=== PATIENT | female | born 1960 | race Caucasian/White ===

== ENCOUNTER → 2017-12-30 | Outpatient (CLI) | payer BC ==
--- NOTE | 2017-12-30 14:04 | DIAGNOSTIC IMAGING REPORT ---
CT SCAN OF THE ABDOMEN AND PELVIS WITHOUT CONTRAST CLINICAL HISTORY: D64.9 [id number] Personal history of kidney disease, possible adenopathy.. COMPARISON STUDY: No previous studies for comparison. TECHNIQUE: CT scan of the abdomen and pelvis was performed from the lung bases to the proximal femurs. Images are reviewed in the axial, sagittal, and coronal planes. IV contrast was not administered for this examination. A dose lowering technique was utilized adhering to the principles of ALARA. CT DOSE: 1017.46 mGycm FINDINGS: Lower chest: The heart is normal in size and configuration, without pericardial effusion. The lung bases and pleural spaces are clear. Liver: The unenhanced liver is normal in size, contour, and attenuation. There is no intrahepatic biliary ductal dilatation. Gallbladder: Unremarkable. Spleen: Normal in size and attenuation. The spleen measures 96 mm. Pancreas: Unremarkable. Adrenal glands: Unremarkable. Kidneys: The unenhanced kidneys are normal in size without hydronephrosis. There is no contour deforming renal mass lesion. No renal calculi are identified. Bowel: There are no transition zones indicate bowel obstruction. There are no acute inflammatory changes. There is no acute diverticulitis. There are no findings to indicate acute appendicitis. Peritoneum: There is no intraperitoneal free air or abdominal ascites. Vasculature: The abdominal aorta is normal in course and caliber. Adenopathy: None. Pelvic viscera: The bladder, and pelvic viscera are unremarkable. Skeletal structures: No destructive osseous lesions are seen. IMPRESSION: 1. No acute intra-abdominal or pelvic findings 2. Normal splenic size. No evidence of pathologic adenopathy 3. No evidence of bowel obstruction. No evidence of free air 4. No acute inflammatory changes Electronically signed by: Mahamed Desai M.D. 12/30/2017 2:02 PM Dictated Date/Time: 12/30/2017 1:59 PM
== END | disposition home or self-care (01) ==
LOC: C.CTS 13:32
PROVIDERS: ATTEND Family Medicine Adult Medicine
DX: D47.3 Essential (hemorrhagic) thrombocythemia (principal); D64.9 Anemia, unspecified; Z87.442 Personal history of urinary calculi

== ENCOUNTER 2021-05-12 14:00 | Inpatient (IN) ==
[2021-05-12 15:38] LABS: Hematocrit (blood only) 43.4 % (37-47); Hemoglobin 14.7 g/dL (12.0-16.0); Mean Corpuscular Hemoglobin 30.1 pg (25-34); Mean Corpuscular Hgb Conc 33.9 g/dL (32-36); Mean Corpuscular Volume 88.8 fL (80-100); Mean Platelet Volume 8.7 fL (7.4-10.4); Platelet Count 535 K/uL (130-400); RDW Coefficient of Variation 13.1 % (11.5-14.5); RDW Standard Deviation 42.7 fL (36.4-46.3); Red Blood Count 4.89 M/uL (4.2-5.4); White Blood Count 15.85 K/uL (4.8-10.8)
[2021-05-12 15:47] LABS: Appearance Urine Clear (Clear); Bacteria Urine Automated Negative (Negative); Bilirubin Urine Negative (Negative); Blood Urine 3+ (Negative); Color Urine Yellow; Epithelial Cell Urine Auto 20-30 /lpf (0-5); Glucose Urine UA Negative (Negative); Ketones Urine Trace (Negative); Leukocyte Esterase Urine 1+ (Negative); Nitrite Urine Negative (Negative); Protein Urine Trace (Negative); RBC Urine Automated >30 /hpf (0-4); Urobilinogen Urine Negative (Negative)
[2021-05-12 15:55] LABS: BUN Creatinine Ratio 15.5 (10-20); Blood Urea Nitrogen 15 mg/dl (7-18); Calcium 9.8 mg/dl (8.5-10.1); Carbon Dioxide 26 mmol/L (21-32); Chloride 111 mmol/L (98-107); Est GFR (African American) 74.9 ml/min; Est GFR (Non-African American) 64.6 ml/min; Glucose 99 mg/dl (70-99); Potassium 4.3 mmol/L (3.5-5.1); Sodium 140 mmol/L (136-145)
[2021-05-12] MEDS ORDERED: KETOROLAC TROMETHAMINE 15 MG/ML VIAL IV ONE (16:15)
[2021-05-12] MEDS ORDERED: SODIUM CHLORIDE 0.9% 1000ML 1,000 ML IV ONE ×2 (16:15→17:04)
--- NOTE | 2021-05-12 16:15 | Emergency Department Note ---
Impression & Plan Flank Pain, Renal colic, Leukocytosis, High serum chloride ED Provider Note NAME: ELMER REYNA AGE: 60 SEX: F : 1960 ARRIVES VIA: Walk-In INFORMANT: Patient ED PROVIDER(S): Dejon Armendariz DO CHIEF COMPLAINT: Left flank pain HPI: Patient is a 60-year-old female who presents to the ER for left flank pain. She notes that this started last Tuesday. Its worse with twisting, turning, bending, and movement. Goes into her left buttocks. She notes it feels in her previous kidney stones. Does wrap around her left abdomen. Is 7 out of 10 but when it comes in waves it is 10 out of 10. She does have some intermittent nausea and vomiting when the pain is very severe. No headache or change in vision. No chest pain or shortness of breath. She notes she does have some pain in the upper thoracic region as well which is tender on palpation. ROS: See above HPI for pertinent positives & negatives. A total of 10 systems re viewed and were otherwise negative. PAST MEDICAL HISTORY:See Below PAST SURGICAL HISTORY:See Below FAMILY HISTORY:See Below SOCIAL HISTORY:See Below HOME MEDICATIONS:See Below ALLERGIES:See Below VITALS:See Below PHYSICAL EXAMINATION: GENERAL: Sitting up in bed, alert, well appearing, well nourished, no distress, non-toxic EYE EXAM: normal conjunctiva. OROPHARYNX: no exudate, no erythema, lips, buccal mucosa, and tongue normal and mucous membranes are moist NECK: supple, no nuchal rigidity, no adenopathy, non-tender LUNGS: Clear to auscultation. Normal chest wall mechanics HEART: no murmurs, S1 normal and S2 normal ABDOMEN: abdomen soft, non-tender, normo-active bowel sounds, no masses, no rebound or guarding. BACK: Back is symmetrical on inspection and there is no deformity, no midline tenderness, no CVA tenderness. SKIN: no rashes and no bruising UPPER EXTREMITIES: upper extremities are grossly normal. LOWER EXTREMITIES: No pitting edema. Flexion-extension hips knees ankles and EHL intact NEURO EXAM: Normal sensorium, cranial nerves II-XII grossly intact, normal speech, no gross weakness of arms, no gross weakness of legs. MEDICAL DECISION MAKING: Patient is a 60-year-old female who presents ER for left flank pain. IV was established blood work was obtained. She is persistently tachycardic in the ER. Labs show leukocytosis of nearly 16,000. Platelets were elevated. BMP with a slightly elevated chloride at 111. Bilirubin LFTs and troponin were negative. Lipase was unremarkable. UA showed 10 whites greater than 30 reds, leuks and 10-20 epithelial cells. This was repeated and this is the best we could obtain. Covid was negative. CT shows stranding around the kidney. Discussed with Keon Sousa and he agrees with observation. Patient was given IV antibiotics and fluids. Updated bedside. She was given Toradol. She had good pain control. Discussed with hospitalist for further evaluation. Triage Nursing notes reviewed. Limited review of prior medical records performed Vital Signs: reviewed and remarkable for HTN Differential diagnosis: Differential diagnoses includes but is not limited to gastritis, peptic ulcer disease, GERD, gallbladder disease, pancreatitis, small bowel obstruction, acute coronary syndrome, pericarditis, ischemic bowel, irritable bowel disease, irritable bowel syndrome, appendicitis, diverticulitis, malignancy, hernia, urinary tract infection, torsion, /ectopic (if female), perforation, trauma, infectious. ER treatment provided: See below Diagnostics interpreted by me: ECG: none Cardiac Monitoring: An order was placed for continuous cardiac monitoring. The monitor shows a rate of 98 with sinus rhythm. Laboratory studies: As stated above and show below. Imaging studies: CT shows a 6 mm left ureteral stone Consultation(s): none Procedures: none Critical Care: None Past Med/Surg History Medical History COVID-19 Depression Fibromyalgia History of duodenal ulcer History of iron deficiency anemia Insomnia Personal history of kidney stones Post concussive syndrome Post-COVID syndrome Thrombocytosis Surgical History History of carpal tunnel surgery of left wrist History of cervical biopsy History of colonoscopy History of dilatation and curettage History of tubal ligation History of wisdom tooth extraction Hx of LASIK Family History Mother Hypertension Gallbladder disease Family history of reaction to anesthesia SLOW TO WAKE UP-WAS IN HER 80'S Father Lung disease Grandmother (Paternal) Breast cancer Social History Smoking Status: Never smoker Second Hand Exposure: Yes (mom smoked); Hx Alcohol Use: Yes Alcohol type: wine Hx Substance Use: No Preferred Language: Jordanian Communication Ability: Effective Retread Operator Required: No Beliefs That Will Affect Care: None marital status: Current Living Situation: Spouse Current Living Situation Comment: spouse and 2 cats current occupational status: employed current occupation: guidance advisor Feels Safe at Home: Yes Childhood Exposure to Second-Hand Smoke: Yes caffeine: No Dental Care, Regularly: Yes Physical Activity Frequency: 3-4 Times per Week Seatbelt Use: always Sunscreen Use: Yes Assistive Devices: Glasses Allergies Allergies Allergy/AdvReac Type Severity Reaction Status Date / Time codeine Allergy Intermediate OUT OF Verified 05/12/21 16:16 BODY EXPERIENCE sodium fluoride AdvReac Mild Vomiting Verified 05/12/21 16:16 [From Fluoritab] tramadol AdvReac Mild excessive Verified 05/12/21 16:16 sedation Home Meds Home Medications Medication Instructions Recorded Confirmed cranberry 500 mg capsule 500 mg PO HS cap 05/11/19 05/12/21 multivitamin 1 tab PO QAM 05/11/19 05/12/21 docusate sodium 100 mg capsule 100 mg PO BID 11/27/19 05/12/21 lactobacillus combination no.4 3 3,000 mmu cells PO QAM 11/27/19 05/12/21 billion cell capsule (Probiotic) aspirin 81 mg tablet,delayed 81 mg PO DAILY 12/29/20 05/12/21 release Previous Rx's Medication Instructions Recorded triamcinolone acetonide 0.1 % 1 applic DT BID PRN #5 gm 01/16/21 dental paste atenolol 25 mg tablet 25 mg PO DAILY #90 tab 03/16/21 mirtazapine 15 mg tablet 15 mg PO HS #30 tab 03/16/21 naproxen 500 mg tablet 500 mg PO BID #180 tab 03/16/21 dextroamphetamine-amphetamine ER 25 mg PO QAM #30 cap 04/20/21 25 mg 24hr capsule,extend release Results & Data (ED) Vital Signs Vital Signs - 24 hr 05/12/21 14:07 05/12/21 16:30 05/12/21 17:00 Temperature 36.8 C Temperature Source Temporal Artery Scan Pulse Rate 99 H 96 H 96 H Pulse Rate from SpO2 Sensor 95 H 98 H Respiratory Rate 20 19 16 Respiratory Effort / Characteristics Non-Labored Spontaneous Respiratory Depth Normal Respiratory Pattern Regular Blood Pressure 166/86 H 145/88 H 123/90 Blood Pressure Mean 112 107 101 Pulse Oximetry 99 98 100 Oxygen Delivery Method Room Air Sepsis Recent Fever Within 48 Hours No Sepsis New/Unexplained Change in Mental Status No Sepsis Action Taken by Nursing No Action Required 05/12/21 17:30 05/12/21 18:00 05/12/21 18:31 Temperature Temperature Source Pulse Rate 94 H 97 H 104 H Pulse Rate from SpO2 Sensor 96 H 98 H 105 H Respiratory Rate 20 19 18 Respiratory Effort / Characteristics Respiratory Depth Respiratory Pattern Blood Pressure 127/82 132/75 154/115 H Blood Pressure Mean 97 94 128 Pulse Oximetry 100 100 99 Oxygen Delivery Method Sepsis Recent Fever Within 48 Hours Sepsis New/Unexplained Change in Mental Status Sepsis Action Taken by Nursing 05/12/21 19:30 05/12/21 20:00 05/12/21 20:31 Temperature Temperature Source Pulse Rate 104 H 102 H 99 H Pulse Rate from SpO2 Sensor 85 102 H 100 H Respiratory Rate 19 16 16 Respiratory Effort / Characteristics Respiratory Depth Respiratory Pattern Blood Pressure 148/120 H 141/82 H Blood Pressure Mean 129 101 Pulse Oximetry 90 98 99 Oxygen Delivery Method Sepsis Recent Fever Within 48 Hours Sepsis New/Unexplained Change in Mental Status Sepsis Action Taken by Nursing Laboratory Data Result diagrams: 05/12/21 15:26 05/12/21 15:26 Lab Results 05/12/21 05/12/21 05/12/21 Range/Units 15:26 15:26 15:26 WBC 15.85 H (4.8-10.8) K/uL RBC 4.89 (4.2-5.4) M/uL Hgb 14.7 (12.0-16.0) g/dL Hct 43.4 (37-47) % MCV 88.8 (80-100) fL MCH 30.1 (25-34) pg MCHC 33.9 (32-36) g/dL RDW Std Deviation 42.7 (36.4-46.3) fL RDW Coeff of Gracy 13.1 (11.5-14.5) % Plt Count 535 H (130-400) K/uL MPV 8.7 (7.4-10.4) fL Sodium 140 (136-145) mmol/L Potassium 4.3 (3.5-5.1) mmol/L Chloride 111 H (98-107) mmol/L Carbon Dioxide 26 (21-32) mmol/L Anion Gap 3.0 (3-11) BUN 15 (7-18) mg/dl Creatinine 0.95 (0.6-1.2) mg/dl Est Cr Clr Drug Dosing Not Reportable Est GFR ( Amer) 74.9 ml/min Est GFR (Non-Af Amer) 64.6 ml/min BUN/Creatinine Ratio 15.5 (10-20) Glucose 99 (70-99) mg/dl Calcium 9.8 (8.5-10.1) mg/dl Total Bilirubin (0.2-1) mg/dl Direct Bilirubin (0-0.2) mg/dl AST (15-37) U/L ALT (12-78) U/L Alkaline Phosphatase (45-117) U/L Troponin I (0-0.045) ng/ml Total Protein (6.4-8.2) gm/dl Albumin (3.4-5.0) gm/dl Lipase (73-393) U/L Specimen Hemolysis Urine Color Yellow Urine Appearance Clear (Clear) Urine pH 7.0 (4.5-7.5) Ur Specific [place] 1.010 (1.000-1.030) Urine Protein Trace H (Negative) Urine Glucose (UA) Negative (Negative) Urine Ketones Trace H (Negative) Urine Blood 3+ H (Negative) Urine Nitrite Negative (Negative) Urine Bilirubin Negative (Negative) Urine Urobilinogen Negative (Negative) Ur Leukocyte Esterase 1+ H (Negative) Urine WBC (Auto) 10-30 H (0-5) /hpf Urine RBC (Auto) >30 H (0-4) /hpf U Hyaline Cast (Auto) 1-5 (0-5) /lpf U Epithel Cells (Auto) 20-30 H (0-5) /lpf Urine Bacteria (Auto) Negative (Negative) COVID-19 Eval Order SARS-CoV-2 (PCR) (Negative) 05/12/21 05/12/21 05/12/21 Range/Units 15:26 17:19 18:03 WBC (4.8-10.8) K/uL RBC (4.2-5.4) M/uL Hgb (12.0-16.0) g/dL Hct (37-47) % MCV (80-100) fL MCH (25-34) pg MCHC (32-36) g/dL RDW Std Deviation (36.4-46.3) fL RDW Coeff of Gracy (11.5-14.5) % Plt Count (130-400) K/uL MPV (7.4-10.4) fL Sodium (136-145) mmol/L Potassium (3.5-5.1) mmol/L Chloride (98-107) mmol/L Carbon Dioxide (21-32) mmol/L Anion Gap (3-11) BUN (7-18) mg/dl Creatinine (0.6-1.2) mg/dl Est Cr Clr Drug Dosing Est GFR ( Amer) ml/min Est GFR (Non-Af Amer) ml/min BUN/Creatinine Ratio (10-20) Glucose (70-99) mg/dl Calcium (8.5-10.1) mg/dl Total Bilirubin 0.4 (0.2-1) mg/dl Direct Bilirubin 0.1 (0-0.2) mg/dl AST 18 (15-37) U/L ALT 23 (12-78) U/L Alkaline Phosphatase 77 (45-117) U/L Troponin I < 0.015 (0-0.045) ng/ml Total Protein 6.6 (6.4-8.2) gm/dl Albumin 3.2 L (3.4-5.0) gm/dl Lipase 147 (73-393) U/L Specimen Hemolysis Urine Color Yellow Urine Appearance Clear (Clear) Urine pH 7.0 (4.5-7.5) Ur Specific [place] 1.012 (1.000-1.030) Urine Protein Negative (Negative) Urine Glucose (UA) Negative (Negative) Urine Ketones Trace H (Negative) Urine Blood 2+ H (Negative) Urine Nitrite Negative (Negative) Urine Bilirubin Negative (Negative) Urine Urobilinogen Negative (Negative) Ur Leukocyte Esterase Trace H (Negative) Urine WBC (Auto) 5-10 H (0-5) /hpf Urine RBC (Auto) >30 H (0-4) /hpf U Hyaline Cast (Auto) 1-5 (0-5) /lpf U Epithel Cells (Auto) 10-20 H (0-5) /lpf Urine Bacteria (Auto) Negative (Negative) COVID-19 Eval Order SARS-CoV-2 (PCR) (Negative) 05/12/21 05/12/21 Range/Units 19:10 19:10 WBC (4.8-10.8) K/uL RBC (4.2-5.4) M/uL Hgb (12.0-16.0) g/dL Hct (37-47) % MCV (80-100) fL MCH (25-34) pg MCHC (32-36) g/dL RDW Std Deviation (36.4-46.3) fL RDW Coeff of Gracy (11.5-14.5) % Plt Count (130-400) K/uL MPV (7.4-10.4) fL Sodium (136-145) mmol/L Potassium (3.5-5.1) mmol/L Chloride (98-107) mmol/L Carbon Dioxide (21-32) mmol/L Anion Gap (3-11) BUN (7-18) mg/dl Creatinine (0.6-1.2) mg/dl Est Cr Clr Drug Dosing Est GFR ( Amer) ml/min Est GFR (Non-Af Amer) ml/min BUN/Creatinine Ratio (10-20) Glucose (70-99) mg/dl Calcium (8.5-10.1) mg/dl Total Bilirubin (0.2-1) mg/dl Direct Bilirubin (0-0.2) mg/dl AST (15-37) U/L ALT (12-78) U/L Alkaline Phosphatase (45-117) U/L Troponin I (0-0.045) ng/ml Total Protein (6.4-8.2) gm/dl Albumin (3.4-5.0) gm/dl Lipase (73-393) U/L Specimen Hemolysis Urine Color Urine Appearance (Clear) Urine pH (4.5-7.5) Ur Specific [place] (1.000-1.030) Urine Protein (Negative) Urine Glucose (UA) (Negative) Urine Ketones (Negative) Urine Blood (Negative) Urine Nitrite (Negative) Urine Bilirubin (Negative) Urine Urobilinogen (Negative) Ur Leukocyte Esterase (Negative) Urine WBC (Auto) (0-5) /hpf Urine RBC (Auto) (0-4) /hpf U Hyaline Cast (Auto) (0-5) /lpf U Epithel Cells (Auto) (0-5) /lpf Urine Bacteria (Auto) (Negative) COVID-19 Eval Order Covid19 at [facility] SARS-CoV-2 (PCR) NEGATIVE (Negative) Administered Medications Discontinued Medications Sodium Chloride (Nss 1000ml) 1,000 mls @ 999 mls/hr IV .Q1H1M ONE Stop: 05/12/21 17:15 Last Infusion: 05/12/21 17:27 Dose: 0 mls/hr Documented by: [id number] Admin: 05/12/21 16:26 Dose: 999 mls/hr Documented by: [id number] Sodium Chloride (Nss 1000ml) 1,000 mls @ 999 mls/hr IV .Q1H1M ONE Stop: 05/12/21 18:04 Last Infusion: 05/12/21 19:00 Dose: 0 mls/hr Documented by: [id number] Admin: 05/12/21 17:17 Dose: 999 mls/hr Documented by: [id number] Ceftriaxone Sodium (Rocephin) 1,000 mg in 50 mls @ 100 mls/hr IV NOW STA Stop: 05/12/21 19:22 Last Infusion: 05/12/21 20:40 Dose: 0 mls/hr Documented by: [id number] Admin: 05/12/21 20:07 Dose: 100 mls/hr Documented by: [id number] Ketorolac Tromethamine (Ketorolac Tromethamine 15 Mg/Ml Vial) 10 mg IV NOW ONE Stop: 05/12/21 16:16 Last Admin: 05/12/21 16:25 Dose: 10 mg Documented by: [id number] Imaging Data Radiologist's Impression: Abdomen/Pelvis CT 05/12/21 15:47 CT OF THE ABDOMEN AND PELVIS WITHOUT CONTRAST CLINICAL HISTORY: ? stone. Left flank pain. COMPARISON STUDY: CT of the abdomen and pelvis December 30, 2017. TECHNIQUE: Axial images of the abdomen and pelvis were obtained without IV contrast. Images were reviewed in the axial, sagittal, and coronal planes. Automated exposure control was utilized for the study. A dose lowering technique was utilized adhering to the principles of ALARA. FINDINGS: There are subtle groundglass opacities within the bilateral lower lobes that measure up to 1.1 cm. No pneumatosis, free air or portal venous gas is present. There is mild left hydroureteronephrosis due to a 5 mm mid left ureteral calculus located at the level of the sacroiliac joint. There is an additional 3 mm distal left ureteral calculus. A few small right renal calculi measure up to 3 mm. A water attenuation lesion within the lower pole of the right kidney, measuring 1.9 cm, is suboptimally assessed on this unenhanced exam but favors a cyst. Evaluation of the remainder of the abdomen and pelvis is subo ptimal on this exam. The liver, spleen, adrenal glands and pancreas are unremarkable. There is no evidence for a bowel obstruction. There is colonic diverticulosis without evidence for acute diverticulitis. There is no lymphadenopathy. There is no ascites. IMPRESSION: 1. 5 mm mid left ureteral calculus results in mild left hydroureteronephrosis with perinephric and periureteral stranding. Additional 3 mm distal left ureteral calculus. 2. Right-sided nephrolithiasis. No right ureteral calculi. 3. Colonic diverticulosis without evidence for acute diverticulitis. 4. A few groundglass opacities within the bilateral lower lobes. These likely reflect a mild infectious process. A chest CT in 3 months to ensure resolution is recommended. ACT 112: Negative or not required by law. Electronically signed by: Demarco Buitrago M.D. 05/12/2021 4:32 PM Chest X-Ray 05/12/21 19:28 SINGLE VIEW CHEST CLINICAL HISTORY: Flank pain. Mild right basilar opacities seen by CT. FINDINGS: An AP, portable, upright chest radiograph is compared to study dated 12/29/2020. Correlation is made with abdominal CT performed the same day 05/12/2021. The cardiomediastinal silhouette is unremarkable. There is mild bibasilar atelectasis. The lungs and pleural spaces are otherwise clear. No pneumothorax is seen. The skeletal structures are osteopenic. The bony thorax is grossly intact. IMPRESSION: 1. No active disease in the chest. 2. The minimal groundglass opacities at the right lung base seen by CT cannot be evaluated by chest x-ray. ACT 112: Negative or not required by law. Electronically signed by: Jonathan Molina M.D. 05/12/2021 7:38 PM Discharge Plan Visit Data Chief Complaint: Flank Pain Stated Complaint: SEVERE FLANK PAIN ED Provider: Dejon Armendariz Discharge Problem: Flank Pain, Renal colic, Leukocytosis, High serum chloride Forms Stand Alone Forms: My [facility] Prescriptions Prescriptions: No Action triamcinolone acetonide 0.1 % paste 1 applic DT BID PRN (Reason: mouth irritation) Qty: 5 RF: 1 naproxen 500 mg tablet 500 mg PO BID Qty: 180 RF: 3 mirtazapine 15 mg tablet 15 mg PO HS Qty: 30 RF: 11 atenolol 25 mg tablet 25 mg PO DAILY Qty: 90 RF: 3 dextroamphetamine-amphetamine 25 mg capsule,extended release 24hr 25 mg PO QAM Qty: 30 RF: 0 cranberry 500 mg capsule 500 mg PO HS RF: 0 multivitamin tablet 1 tab PO QAM RF: 0 docusate sodium 100 mg capsule 100 mg PO BID RF: 0 Probiotic 3 billion cell Capsule 3,000 mmu cells PO QAM RF: 0 aspirin [Aspir-Low] 81 mg Tablet,Delayed Release (Dr/Ec) 81 mg PO DAILY RF: 0 Referrals Referrals: Keli Patel MD [Primary Care Provider] -
--- NOTE | 2021-05-12 16:34 | CT Scan Report ---
CT OF THE ABDOMEN AND PELVIS WITHOUT CONTRAST CLINICAL HISTORY: ? stone. Left flank pain. COMPARISON STUDY: CT of the abdomen and pelvis December 30, 2017. TECHNIQUE: Axial images of the abdomen and pelvis were obtained without IV contrast. Images were revi ewed in the axial, sagittal, and coronal planes. Automated exposure control was utilized for the annabella dy. A dose lowering technique was utilized adhering to the principles of ALARA. FINDINGS: There are subtle groundglass opacities within the bilateral lower lobes that measure up to 1.1 cm. No pneumatosis, free air or portal venous gas is present. There is mild left hydroureteroneph rosis due to a 5 mm mid left ureteral calculus located at the level of the sacroiliac joint. There is an additional 3 mm distal left ureteral calculus. A few small right renal calculi measure up to 3 mm . A water attenuation lesion within the lower pole of the right kidney, measuring 1.9 cm, is suboptim ally assessed on this unenhanced exam but favors a cyst. Evaluation of the remainder of the abdomen a nd pelvis is suboptimal on this exam. The liver, spleen, adrenal glands and pancreas are unremarkable . There is no evidence for a bowel obstruction. There is colonic diverticulosis without evidence for acute diverticulitis. There is no lymphadenopathy. There is no ascites. IMPRESSION: 1. 5 mm mid left ureteral calculus results in mild left hydroureteronephrosis with perinephric and pe riureteral stranding. Additional 3 mm distal left ureteral calculus. 2. Right-sided nephrolithiasis. No right ureteral calculi. 3. Colonic diverticulosis without evidence for acute diverticulitis. 4. A few groundglass opacities within the bilateral lower lobes. These likely reflect a mild infectio us process. A chest CT in 3 months to ensure resolution is recommended. ACT 112: Negative or not required by law. Electronically signed by: Demarco Buitrago M.D. 05/12/2021 4:32 PM
[2021-05-12 17:30] LABS: Appearance Urine Clear (Clear); Bacteria Urine Automated Negative (Negative); Bilirubin Urine Negative (Negative); Blood Urine 2+ (Negative); Color Urine Yellow; Glucose Urine UA Negative (Negative); Ketones Urine Trace (Negative); Leukocyte Esterase Urine Trace (Negative); Nitrite Urine Negative (Negative); Protein Urine Negative (Negative); RBC Urine Automated >30 /hpf (0-4); Specific Gravity Urine 1.012 (1.000-1.030); Urobilinogen Urine Negative (Negative)
[2021-05-12 18:28] LABS: Albumin Level 3.2 gm/dl (3.4-5.0); Bilirubin Direct 0.1 mg/dl (0-0.2); Bilirubin,Total 0.4 mg/dl (0.2-1); Total Protein 6.6 gm/dl (6.4-8.2)
[2021-05-12] MEDS ORDERED: cefTRIAXone SODIUM 1,000 MG/50 ML BAG IV STA (18:53)
--- NOTE | 2021-05-12 19:39 | XRay Report ---
SINGLE VIEW CHEST CLINICAL HISTORY: Flank pain. Mild right basilar opacities seen by CT. FINDINGS: An AP, portable, upright chest radiograph is compared to study dated 12/29/2020. Correlation is made with abdominal CT performed the same day 05/12/2021. The cardiomediastinal silhouette is unre markable. There is mild bibasilar atelectasis. The lungs and pleural spaces are otherwise clear. No p neumothorax is seen. The skeletal structures are osteopenic. The bony thorax is grossly intact. IMPRESSION: 1. No active disease in the chest. 2. The minimal groundglass opacities at the right lung base seen by CT cannot be evaluated by chest x -ray. ACT 112: Negative or not required by law. Electronically signed by: Jonathan Molina M.D. 05/12/2021 7:38 PM
--- NOTE | 2021-05-12 20:52 | History & Physical Report ---
Date of Service May 12, 2021 Assessment & Plan (1) Left ureteral stone: Plan: Left ureteral stones, 5 mm proximal and 3 mm distal/mild left hydronephrosis and perinephric stranding- N.p.o. after midnight NSS + KCl 20 mEq at 80 mils per hour Ceftriaxone 2 g IV daily Follow urine culture and sensitivity Zofran 4 mg IV every 6 hours as needed Toradol 15 mg IV every 6 hours as needed moderate pain Acetaminophen 650 mg p.o. every 6 hours as needed mild pain or fever Consult urology (2) Hydronephrosis, left: Plan: See above (3) Depression: Plan: Depression/fibromyalgia/insomnia- Continue mirtazapine (4) Fibromyalgia: Plan: See above (5) Insomnia: Plan: See above (6) Hypertension: Plan: She reports not needing her blood pressure medications for the entire week, and her pressure has been in the normal range. Continue atenolol with hold parameters Hold aspirin History of Present Illness Chief Complaint: The patient presents to the emergency department with complaint of left flank pain that began 1 week ago. Primary Care Provider: Keli Patel MD The patient is a 60-year-old female with a past medical history including insomnia, depression, post Covid syndrome, thrombocytosis, fibromyalgia, chronic GERD, right carpal tunnel syndrome and postconcussive syndrome. She presents to the emergency department with 1 week of left flank pain, similar to her previous 2 episodes of kidney stones, does occasionally radiate toward her left groin, and is accompanied by intermittent nausea and vomiting when the pain is severe. Allergies Allergy/AdvReac Type Severity Reaction Status Date / Time codeine Allergy Intermediate OUT OF Verified 05/12/21 16:16 BODY EXPERIENCE sodium fluoride AdvReac Mild Vomiting Verified 05/12/21 16:16 [From Fluoritab] tramadol AdvReac Mild excessive Verified 05/12/21 16:16 sedation Home Medications Medication Instructions Recorded Confirmed Type cranberry 500 mg capsule 500 mg PO HS cap 05/11/19 05/12/21 History multivitamin 1 tab PO QAM 05/11/19 05/12/21 History docusate sodium 100 mg capsule 100 mg PO BID 11/27/19 05/12/21 History lactobacillus combination no.4 3 3,000 mmu cells PO QAM 11/27/19 05/12/21 History billion cell capsule (Probiotic) aspirin 81 mg tablet,delayed 81 mg PO DAILY 12/29/20 05/12/21 History release triamcinolone acetonide 0.1 % 1 applic DT BID PRN #5 gm 01/16/21 05/12/21 Rx dental paste atenolol 25 mg tablet 25 mg PO DAILY #90 tab 03/16/21 05/12/21 Rx mirtazapine 15 mg tablet 15 mg PO HS #30 tab 03/16/21 05/12/21 Rx naproxen 500 mg tablet 500 mg PO BID #180 tab 03/16/21 05/12/21 Rx dextroamphetamine-amphetamine ER 25 mg PO QAM #30 cap 04/20/21 05/12/21 Rx 25 mg 24hr capsule,extend release Past Med/Surg History Medical History (Updated 05/13/21 @ 00:08 by Glenn Schneider MD) COVID-19 Depression Fibromyalgia History of duodenal ulcer while in college History of iron deficiency anemia Hypertension Insomnia Personal history of kidney stones passed on own Post concussive syndrome Post-COVID syndrome Thrombocytosis ASA for this Surgical History History of carpal tunnel surgery of left wrist History of cervical biopsy History of colonoscopy History of dilatation and curettage History of tubal ligation History of wisdom tooth extraction Hx of LASIK Family History Mother Hypertension Gallbladder disease Family history of reaction to anesthesia SLOW TO WAKE UP-WAS IN HER 80'S Father Lung disease Grandmother (Paternal) Breast cancer Social History Smoking Status: Never smoker Second Hand Exposure: Yes (mom smoked); Hx Alcohol Use: No Hx Substance Use: No Preferred Language: Faroese Communication Ability: Effective Assistant Public Defender Required: No Beliefs That Will Affect Care: None marital status: Current Living Situation: Spouse Current Living Situation Comment: spouse and 2 cats current occupational status: employed current occupation: guidance advisor Feels Safe at Home: Yes Childhood Exposure to Second-Hand Smoke: Yes caffeine: No Dental Care, Regularly: Yes Physical Activity Frequency: 3-4 Times per Week Seatbelt Use: always Sunscreen Use: Yes Assistive Devices: None Review of Systems Review of Systems: The patient denies chest pain, palpitations, shortness of breath, dyspnea on exertion, cough, lower extremity swelling, sore throat, chills, sweats, diarrhea , constipation, abdominal pain, pelvic pain, blood in urine or stool, dysuria, lightheadedness, dizziness, headache, memory loss, loss of consciousness, rash, abnormal bruising or bleeding, imbalance, focal or generalized weakness, numbness or tingling in arms or legs, generalized arthralgias or myalgias, neck pain, or night sweats. The review of systems is otherwise negative other than for that already noted above, and at least 10 systems have been reviewed. Physical Exam Physical Exam: The patient is awake, alert and oriented 3, well developed and well nourished, normocephalic and atraumatic, lying in bed and in no acute distress. HEENT--PERRL, EOMI, mucous membranes and oropharynx normal. Neck--supple. No JVD. No bruits. Thyroid normal, trachea midline, no adenopathy. Heart--normal S1 and S2. No murmurs, rubs or gallops. Lungs--clear bilaterally, no respiratory distress, no accessory muscle use. Abdomen--normal bowel sounds and soft. Nontender. Nondistended. Morbidly obese Extremities--no cyanosis or clubbing. No edema. Dermatologic--normal skin turgor, normal color, no abnormal lymph nodes, no rash. Neurologic--cranial nerves II through XII grossly intact. Rheumatologic--normal range of motion. Psychiatric--normal affect. Results & Data Results & Data ([facility]) Vital Signs (Past 12 Hours) Vital Signs Temp Pulse Resp BP Pulse Ox 05/12/21 20:31 99 H 16 141/82 H 99 05/12/21 20:00 102 H 16 98 05/12/21 19:30 104 H 19 148/120 H 90 05/12/21 18:31 104 H 18 154/115 H 99 05/12/21 18:00 97 H 19 132/75 100 05/12/21 17:30 94 H 20 127/82 100 05/12/21 17:00 96 H 16 123/90 100 05/12/21 16:30 96 H 19 145/88 H 98 05/12/21 14:07 98.2 F 99 H 20 166/86 H 99 Laboratory Results Laboratory Results WBC 15.85 K/uL (4.8-10.8) H 05/12/21 15:26 RBC 4.89 M/uL (4.2-5.4) 05/12/21 15:26 Hgb 14.7 g/dL (12.0-16.0) 05/12/21 15:26 Hct 43.4 % (37-47) 05/12/21 15:26 MCV 88.8 fL (80-100) 05/12/21 15:26 MCH 30.1 pg (25-34) 05/12/21 15: MCHC 33.9 g/dL (32-36) 05/12/21 15:26 RDW Std Deviation 42.7 fL (36.4-46.3) 05/12/21 15:26 RDW Coeff of Gracy 13.1 % (11.5-14.5) 05/12/21 15:26 Plt Count 535 K/uL (130-400) H 05/12/21 15:26 MPV 8.7 fL (7.4-10.4) 05/12/21 15:26 Sodium 140 mmol/L (136-145) 05/12/21 15:26 Potassium 4.3 mmol/L (3.5-5.1) 05/12/21 15:26 Chloride 111 mmol/L (98-107) H 05/12/21 15:26 Carbon Dioxide 26 mmol/L (21-32) 05/12/21 15:26 Anion Gap 3.0 (3-11) 05/12/21 15:26 BUN 15 mg/dl (7-18) 05/12/21 15:26 Creatinine 0.95 mg/dl (0.6-1.2) 05/12/21 15:26 Est Cr Clr Drug Dosing Not Reportable 05/12/21 15:26 Est GFR ( Amer) 74.9 ml/min 05/12/21 15:26 Est GFR (Non-Af Amer) 64.6 ml/min 05/12/21 15:26 BUN/Creatinine Ratio 15.5 (10-20) 05/12/21 15:26 Glucose 99 mg/dl (70-99) 05/12/21 15:26 Calcium 9.8 mg/dl (8.5-10.1) 05/12/21 15:26 Total Bilirubin 0.4 mg/dl (0.2-1) 05/12/21 18:03 Direct Bilirubin 0.1 mg/dl (0-0.2) 05/12/21 18:03 AST 18 U/L (15-37) 05/12/21 18:03 ALT 23 U/L (12-78) 05/12/21 18:03 Alkaline Phosphatase 77 U/L (45-117) 05/12/21 18:03 Troponin I < 0.015 ng/ml (0-0.045) 05/12/21 15:26 Total Protein 6.6 gm/dl (6.4-8.2) 05/12/21 18:03 Albumin 3.2 gm/dl (3.4-5.0) L 05/12/21 18:03 Lipase 147 U/L (73-393) 05/12/21 18:03 Specimen Hemolysis 05/12/21 15:26 Urine Color Yellow 05/12/21 17:19 Urine Appearance Clear (Clear) 05/12/21 17:19 Urine pH 7.0 (4.5-7.5) 05/12/21 17:19 Ur Specific [place] 1.012 (1.000-1.030) 05/12/21 17:19 Urine Protein Negative (Negative) 05/12/21 17:19 Urine Glucose (UA) Negative (Negative) 05/12/21 17:19 Urine Ketones Trace (Negative) H 05/12/21 17:19 Urine Blood 2+ (Negative) H 05/12/21 17:19 Urine Nitrite Negative (Negative) 05/12/21 17:19 Urine Bilirubin Negative (Negative) 05/12/21 17:19 Urine Urobilinogen Negative (Negative) 05/12/21 17:19 Ur Leukocyte Esterase Trace (Negative) H 05/12/21 17:19 Urine WBC (Auto) 5-10 /hpf (0-5) H 05/12/21 17:19 Urine RBC (Auto) >30 /hpf (0-4) H 05/12/21 17:19 U Hyaline Cast (Auto) 1-5 /lpf (0-5) 05/12/21 17:19 U Epithel Cells (Auto) 10-20 /lpf (0-5) H 05/12/21 17:19 Urine Bacteria (Auto) Negative (Negative) 05/12/21 17:19 COVID-19 Eval Order Covid19 at [facility] 05/12/21 19:10 SARS-CoV-2 (PCR) NEGATIVE (Negative) 05/12/21 19:10 Impressions Abdomen/Pelvis CT 05/12/21 15:47 CT OF THE ABDOMEN AND PELVIS WITHOUT CONTRAST CLINICAL HISTORY: ? stone. Left flank pain. COMPARISON STUDY: CT of the abdomen and pelvis December 30, 2017. TECHNIQUE: Axial images of the abdomen and pelvis were obtained without IV contrast. Images were reviewed in the axial, sagittal, and coronal planes. Automated exposure control was utilized for the study. A dose lowering technique was utilized adhering to the principles of ALARA. FINDINGS: There are subtle groundglass opacities within the bilateral lower lobes that measure up to 1.1 cm. No pneumatosis, free air or portal venous gas is present. There is mild left hydroureteronephrosis due to a 5 mm mid left ureteral calculus located at the level of the sacroiliac joint. There is an additional 3 mm distal left ureteral calculus. A few small right renal calculi measure up to 3 mm. A water attenuation lesion within the lower pole of the right kidney, measuring 1.9 cm, is suboptimally assessed on this unenhanced exam but favors a cyst. Evaluation of the remainder of the abdomen and pelvis is suboptimal on this exam. The liver, spleen, adrenal glands and pancreas are unremarkable. There is no evidence for a bowel obstruction. There is colonic diverticulosis without evidence for acute diverticulitis. There is no lymphadenopathy. There is no ascites. IMPRESSION: 1. 5 mm mid left ureteral calculus results in mild left hydroureteronephrosis with perinephric and periureteral stranding. Additional 3 mm distal left ureteral calculus. 2. Right-sided nephrolithiasis. No right ureteral calculi. 3. Colonic diverticulosis without evidence for acute diverticulitis. 4. A few groundglass opacities within the bilateral lower lobes. These likely reflect a mild infectious process. A chest CT in 3 months to ensure resolution is recommended. ACT 112: Negative or not required by law. Electronically signed by: Demarco Buitrago M.D. 05/12/2021 4:32 PM Chest X-Ray 05/12/21 19:28 SINGLE VIEW CHEST CLINICAL HISTORY: Flank pain. Mild right basilar opacities seen by CT. FINDINGS: An AP, portable, upright chest radiograph is compared to study dated 12/29/2020. Correlation is made with abdominal CT performed the same day 05/12/2021. The cardiomediastinal silhouette is unremarkable. There is mild bibasilar atelectasis. The lungs and pleural spaces are otherwise clear. No pneumothorax is seen. The skeletal structures are osteopenic. The bony thorax is grossly intact. IMPRESSION: 1. No active disease in the chest. 2. The minimal groundglass opacities at the right lung base seen by CT cannot be evaluated by chest x-ray. ACT 112: Negative or not required by law. Electronically signed by: Jonathan Molina M.D. 05/12/2021 7:38 PM ECG Additional Comments: ELMER REYNA ID:[id number] 12-MAY-2021 16:41:59 [facility]- EDSTAT ROUTINE RETRIEVAL Poor data quality, interpretation may be adversely affected Normal sinus rhythm Normal ECG When compared with ECG of 29-DEC-2020 20:08, No significant change was found 25mm/s 10mm/mV 150Hz 9.0.9 12SL 241 GOLDY: 16 Referred by: REFERRED SELF Unconfirmed Vent. rate 94 BPM ND interval 170 ms QRS duration 70 ms QT/QTc 360/450 ms P-R-T axes 57 17 39 1960 (60 yr) Female 1in 1lb Room: Loc:15 Plastic Cutter:Dakota Patel in Code Status & VTE Plan Code Status Full code VTE Prophylaxis Plan VTE Prophylaxis will be ordered: Yes PG Care Time/CCT Total # of Minutes Spent Total Time Spent with Patient: Total time spent is greater than 50% in coordination of care (as documented) at patient's floor/unit and/or counseling patient: Coding Level of Care Code 73039 Initial Inpt Care Lvl 2 Diagnoses Left ureteral stone N20.1 Hydronephrosis, left N13.30 Depression F32.9 Fibromyalgia M79.7 Insomnia G47.00 Hypertension I10
[2021-05-12] MEDS ORDERED: ACETAMINOPHEN 325 MG TAB PO PRN (23:17)
[2021-05-12] MEDS ORDERED: ONDANSETRON INJ 2 MG/ML 2 ML VIAL IV PRN (23:17)
[2021-05-12] MEDS: DOCUSATE SODIUM 100 MG CAP PO SCH (23:38)
[2021-05-12] MEDS ORDERED: MIRTAZAPINE TAB 15 MG TAB PO SCH (23:45)
[2021-05-12] MEDS ORDERED: NSS + 20MEQ KCL 20 MEQ/1,000 ML BAG IV SCH (23:45)
[2021-05-13] MEDS: KETOROLAC TROMETHAMINE 15 MG/ML VIAL IV PRN ×2 (00:59→09:48)
[2021-05-13 07:02] LABS: Basophils # (auto) 0.03 K/uL (0-0.2); Basophils % (auto) 0.4 %; Eosinophils # (auto) 0.39 K/uL (0-0.5); Eosinophils % (auto) 4.9 %; Hematocrit (blood only) 37.3 % (37-47); Hemoglobin 12.2 g/dL (12.0-16.0); Immature Granulocytes # (auto) 0.01 K/uL (0.00-0.02); Immature Granulocytes % (auto) 0.1 %; Lymphocytes % (auto) 34.1 %; Mean Corpuscular Hemoglobin 29.4 pg (25-34); Mean Corpuscular Hgb Conc 32.7 g/dL (32-36); Mean Corpuscular Volume 89.9 fL (80-100); Mean Platelet Volume 8.9 fL (7.4-10.4); Monocytes # (auto) 0.73 K/uL (0.11-0.59); Monocytes % (auto) 9.2 %; Neutrophils # (auto) 4.05 K/uL (1.4-6.5); Neutrophils % (auto) 51.3 %; Platelet Count 471 K/uL (130-400); RDW Coefficient of Variation 13.4 % (11.5-14.5); RDW Standard Deviation 43.9 fL (36.4-46.3); Red Blood Count 4.15 M/uL (4.2-5.4); White Blood Count 7.91 K/uL (4.8-10.8)
[2021-05-13 07:28] VITALS: BP 117/78; PULSE 87; TEMP 97.9; O2SAT 94
[2021-05-13 07:41] LABS: Albumin Level 2.8 gm/dl (3.4-5.0); BUN Creatinine Ratio 15.9 (10-20); Calcium 8.5 mg/dl (8.5-10.1); Creatinine Clr Calc Pharmacy 84.8 ml/min; Est GFR (African American) 89.5 ml/min; Est GFR (Non-African American) 77.2 ml/min
[2021-05-13 07:44] LABS: Albumin Globulin Ratio 0.9 (0.9-2); Bilirubin,Total 0.4 mg/dl (0.2-1); Globulin 3.3 gm/dl (2.5-4.0); Total Protein 6.1 gm/dl (6.4-8.2)
[2021-05-13] MEDS: DOCUSATE SODIUM 100 MG CAP PO SCH (08:32)
[2021-05-13] MEDS ORDERED: cefTRIAXone SODIUM 2,000 MG in DEXTROSE 5% 50 ML IV SCH (09:00)
[2021-05-13] MEDS ORDERED: LACTOBACILLUS ACIDOPHILUS 1 GM PACK PO SCH (09:00)
[2021-05-13] MEDS ORDERED: ATENOLOL 25 MG TABLET PO SCH (09:00)
[2021-05-13] MEDS ORDERED: MULTIVITAMIN TAB PO SCH (09:00)
--- NOTE | 2021-05-13 09:37 | Urology Consultation ---
Date of Consultation May 13, 2021 Assessment & Plan (1) Left ureteral stone: (2) Flank Pain: 60 year-old female patient, with multiple comorbidities, admitted with intractable left flank pain secondary to obstructing 5 mm mid left ureteral calculus with an additional 3 mm distal left ureteral calculus. -Plan of care reviewed with Dr. Sousa. -Patient afebrile. -Labs reviewed - white count improved to normal, creatinine 0.82. -Urine culture pending, currently on empiric IV Ceftriaxone. -Imaging reviewed - 5 mm mid left ureteral calculus with mild left hydroureteronephrosis, perinephric and periureteral stranding. Also with additional 3 mm distal left ureteral calculus. -Discussed options in detail with patient including inpatient ureteral stent, trial of passage, and options for outpatient management including surgical interventions. -Patient declines inpatient intervention and prefers outpatient management, will check KUB this AM. -Given she is afebrile, pain controlled, and labs stable, no acute intervention indicated at this time. -Continue with supportive care, pain control, Flomax, hydration. -Strain all urine. -Discussed in detail worrisome signs/symptoms that would warrant return to ER. -Will arrange outpatient follow-up with urology service this week for continued care. -Expected clinical course reviewed with patient, all questions answered. Thank you for allowing us to participate in the acute care of Mrs. gN. Please reconsult us with additional questions, concerns or changes in patient status. History of Present Illness Reason for Consultation: Ureteral calculi Attending Physician: Alfonzo De La Cruz MD History of Present Illness 60-year-old female patient, with a past medical history including insomnia, depression, post Covid syndrome, thrombocytosis, fibromyalgia, chronic GERD, right carpal tunnel syndrome and other comorbidities listed below, presented to the emergency room last evening with complaints of one week history of left flank pain. Does have known history of stones. Pain was reported to radiate into her left groin with associated nausea or vomiting. CT abd/pelvis was performed which noted obstructing calculi and was admitted to medicine service for further evaluation. Urology consulted for obstructing ureteral calculi. Patient has not followed with urology in the past. As above, does have known history of kidney stones. First episode was roughly 10 years ago with spontaneous passage. Then had spontaneous passage of stone [address] [place] 3 years ago. Chart review: Afebrile Wbc 7.91 (previously 15.85) Hgb 12.2 Creatinine 0.82 Urinalysis on admission trace leukocytes, 5-10 wbc, >30 rbc, negative bacteria, negative nitrates. Urine culture pending. Patient on empiric IV Ceftriaxone. Imaging: CT abd/pelvis without contrast - IMPRESSION: 1. 5 mm mid left ureteral calculus results in mild left hydroureteronephrosis with perinephric and periureteral stranding. Additional 3 mm distal left ureteral calculus. 2. Right-sided nephrolithiasis. No right ureteral calculi. 3. Colonic diverticulosis without evidence for acute diverticulitis. 4. A few groundglass opacities within the bilateral lower lobes. These likely reflect a mild infectious process. A chest CT in 3 months to ensure resolution is recommended. Patient seen and evaluated at bedside. She is awake, alert, non-toxic in appearance. Reports she developed left flank pain earlier this AM, rated as 3 out of 10. Pain is currently tolerable. Denies further nausea/vomiting since yesterday. Denies fevers but did note chills yesterday. No chills today. Denies dysuria or hematuria. Does have urinary frequency, denies urgency. No stone passage since admission. Has been NPO since midnight. Denies additional urologic concerns today. Allergies Allergy/AdvReac Type Severity Reaction Status Date / Time codeine Allergy Intermediate OUT OF Verified 05/12/21 16:16 BODY EXPERIENCE sodium fluoride AdvReac Mild Vomiting Verified 05/12/21 16:16 [From Fluoritab] tramadol AdvReac Mild excessive Verified 05/12/21 16:16 sedation Home Medications Medication Instructions Recorded Confirmed Type cranberry 500 mg capsule 500 mg PO HS cap 05/11/19 05/12/21 History multivitamin 1 tab PO QAM 05/11/19 05/12/21 History docusate sodium 100 mg capsule 100 mg PO BID 11/27/19 05/12/21 History lactobacillus combination no.4 3 3,000 mmu cells PO QAM 11/27/19 05/12/21 History billion cell capsule (Probiotic) aspirin 81 mg tablet,delayed 81 mg PO DAILY 12/29/20 05/12/21 History release triamcinolone acetonide 0.1 % 1 applic DT BID PRN #5 gm 01/16/21 05/12/21 Rx dental paste atenolol 25 mg tablet 25 mg PO DAILY #90 tab 03/16/21 05/12/21 Rx mirtazapine 15 mg tablet 15 mg PO HS #30 tab 03/16/21 05/12/21 Rx naproxen 500 mg tablet 500 mg PO BID #180 tab 03/16/21 05/12/21 Rx dextroamphetamine-amphetamine ER 25 mg PO QAM #30 cap 04/20/21 05/12/21 Rx 25 mg 24hr capsule,extend release Patient History Medical History COVID-19 Depression Fibromyalgia History of duodenal ulcer while in college History of iron deficiency anemia Hypertension Insomnia Personal history of kidney stones passed on own Post concussive syndrome Post-COVID syndrome Thrombocytosis ASA for this Surgical History History of carpal tunnel surgery of left wrist History of cervical biopsy History of colonoscopy History of dilatation and curettage History of tubal ligation History of wisdom tooth extraction Hx of LASIK Family History Mother Hypertension Gallbladder disease Family history of reaction to anesthesia SLOW TO WAKE UP-WAS IN HER 80'S Father Lung disease Grandmother (Paternal) Breast cancer Social History Smoking Status: Never smoker Second Hand Exposure: Yes (mom smoked); Hx Alcohol Use: No Hx Substance Use: No Preferred Language: German Communication Ability: Effective Transportation Planning Technician Required: No Beliefs That Will Affect Care: None marital status: Current Living Situation: Spouse Current Living Situation Comment: spouse and 2 cats current occupational status: employed current occupation: guidance advisor Feels Safe at Home: Yes Childhood Exposure to Second-Hand Smoke: Yes caffeine: No Dental Care, Regularly: Yes Physical Activity Frequency: 3-4 Times per Week Seatbelt Use: always Sunscreen Use: Yes Assistive Devices: None Review of Systems Constitutional: as per Subjective / HPI; no fever Eyes: no problem reported Respiratory: no cough and no dyspnea Cardiovascular: no palpitations and no edema Gastrointestinal: as per Subjective / HPI Musculoskeletal: as per Subjective / HPI Neurologic: no dizziness Endocrine: no fatigue Hematologic / Lymphatic: no easy bleeding and no easy bruising Physical Exam Constitutional: well developed and well nourished; no acute distress and not ill appearing ENMT: Ears: no external ear abnormality Nose: no external nose abnormality Neck: normal visual inspection and trachea midline Respiratory: normal respiratory effort and able to speak in complete sentences; no respiratory distress and no audible wheezes Cardiovascular: Extremities: no calf tenderness and no edema Gastrointestinal (Abdomen): Inspection/Auscultation: abdomen normal to inspection; abdomen not distended Percussion/Palpation: abdomen soft; abdomen nontender and no guarding Musculoskeletal: Moves all extremities without difficulty. Skin: No visible rashes, lesions, or wounds noted. Neurologic: moves all extremities and awake Psychiatric: Orientation: alert, oriented x 3 and cooperative Affect: euthymic affect Genitourinary: no CVA tenderness Results & Data ([facility]) Vital Signs (Past 12 Hours) Vital Signs Temp Pulse Pulse Resp BP BP Pulse Ox 05/13/21 07:27 36.6 C 87 18 117/78 94 05/12/21 23:34 37 C 98 H 16 137/83 98 05/12/21 22:01 102 H 18 142/89 H 99 05/12/21 21:31 100 H 17 141/96 H 98 PG Care Time/CCT Total # of Minutes Spent Total Time Spent with Patient: Total time spent is greater than 50% in coordination of care (as documented) at patient's floor/unit and/or counseling patient: Coding Level of Care Code 32922 Inpt Consult Level 4 Diagnoses Left ureteral stone N20.1 Flank Pain R10.9
--- NOTE | 2021-05-13 09:51 | Hospitalist Progress Note ---
Date of Service May 13, 2021 Assessment & Plan (1) Left ureteral stone: Plan: Urology consulted; no clinical evidence of pyelonephritis Continue Rocephin for now Should get stone analysis and metabolic work-up if not doneshe does not seem to know the type of stone (2) Hydronephrosis, left: Plan: See above (3) Depression: Plan: Continue mirtazapine (4) Insomnia: Plan: See above (5) Hypertension: Plan: She reports not needing her blood pressure medications for the entire week, and her pressure has been in the normal range. Continue atenolol with hold parameters Hold aspirin Admission and Anticipated Discharge Date Admission Date: May 12, 2021 Subjective Follow-up of left ureteric colic-multiple episodes over past few days; no new issues as such. Physical Exam Physical Exam: Constitutional and general: No acute distress, looks biologic age Head and face: No puffiness, atraumatic Eyes: No scleral icterus, extraocular movements normal Neck: Supple, no JVD Musculoskeletal: No acute joint swelling, no bony abnormalities Skin/dermatologic/integument: No rash, no purpura Hematologic and lymphatic: pallor +, no petechia Gastrointestinal/abdomen: Nondistended, soft, nonacute Neurologic: Cranial nerves intact, nonfocal Psychiatry: Awake, alert, pleasant, communicative Cardiovascular: Heart rhythm regular, no rub, no murmur, no gallop Respiratory: Chest movements equal, no use of accessory muscles, no adventitious sounds Extremities: No edema, no cyanosis Results & Data Results & Data ([facility]) Vital Signs (Past 12 Hours) Vital Signs Temp Pulse Pulse Resp BP BP Pulse Ox 05/13/21 07:27 36.6 C 87 18 117/78 94 05/12/21 23:34 37 C 98 H 16 137/83 98 05/12/21 22:01 102 H 18 142/89 H 99 Laboratory Results Laboratory Results - last 24 hr 05/12/21 05/12/21 05/12/21 15:26 15:26 15:26 WBC 15.85 H RBC 4.89 Hgb 14.7 Hct 43.4 MCV 88.8 MCH 30.1 MCHC 33.9 RDW Std Deviation 42.7 RDW Coeff of Gracy 13.1 Plt Count 535 H MPV 8.7 Immature Gran % (Auto) Neut % (Auto) Lymph % (Auto) [place] % (Auto) Eos % (Auto) Baso % (Auto) Neut # (Auto) Lymph # (Auto) [place] # (Auto) Eos # (Auto) Baso # (Auto) Immature Gran # (Auto) Sodium 140 Potassium 4.3 Chloride 111 H Carbon Dioxide 26 Anion Gap 3.0 BUN 15 Creatinine 0.95 Est Cr Clr Drug Dosing Not Reportable Est GFR ( Amer) 74.9 Est GFR (Non-Af Amer) 64.6 BUN/Creatinine Ratio 15.5 Glucose 99 Calcium 9.8 Magnesium Total Bilirubin Direct Bilirubin AST ALT Alkaline Phosphatase Troponin I Total Protein Albumin Globulin Albumin/Globulin Ratio Lipase Specimen Hemolysis Urine Color Yellow Urine Appearance Clear Urine pH 7.0 Ur Specific [place] 1.010 Urine Protein Trace H Urine Glucose (UA) Negative Urine Ketones Trace H Urine Blood 3+ H Urine Nitrite Negative Urine Bilirubin Negative Urine Urobilinogen Negative Ur Leukocyte Esterase 1+ H Urine WBC (Auto) 10-30 H Urine RBC (Auto) >30 H U Hyaline Cast (Auto) 1-5 U Epithel Cells (Auto) 20-30 H Urine Bacteria (Auto) Negative COVID-19 Eval Order SARS-CoV-2 (PCR) 05/12/21 05/12/21 05/12/21 15:26 17:19 18:03 WBC RBC Hgb Hct MCV MCH MCHC RDW Std Deviation RDW Coeff of Gracy Plt Count MPV Immature Gran % (Auto) Neut % (Auto) Lymph % (Auto) [place] % (Auto) Eos % (Auto) Baso % (Auto) Neut # (Auto) Lymph # (Auto) [place] # (Auto) Eos # (Auto) Baso # (Auto) Immature Gran # (Auto) Sodium Potassium Chloride Carbon Dioxide Anion Gap BUN Creatinine Est Cr Clr Drug Dosing Est GFR ( Amer) Est GFR (Non-Af Amer) BUN/Creatinine Ratio Glucose Calcium Magnesium Total Bilirubin 0.4 Direct Bilirubin 0.1 AST 18 ALT 23 Alkaline Phosphatase 77 Troponin I < 0.015 Total Protein 6.6 Albumin 3.2 L Globulin Albumin/Globulin Ratio Lipase 147 Specimen Hemolysis Urine Color Yellow Urine Appearance Clear Urine pH 7.0 Ur Specific [place] 1.012 Urine Protein Negative Urine Glucose (UA) Negative Urine Ketones Trace H Urine Blood 2+ H Urine Nitrite Negative Urine Bilirubin Negative Urine Urobilinogen Negative Ur Leukocyte Esterase Trace H Urine WBC (Auto) 5-10 H Urine RBC (Auto) >30 H U Hyaline Cast (Auto) 1-5 U Epithel Cells (Auto) 10-20 H Urine Bacteria (Auto) Negative COVID-19 Eval Order SARS-CoV-2 (PCR) 05/12/21 05/12/21 05/13/21 19:10 19:10 06:14 WBC 7.91 RBC 4.15 L Hgb 12.2 Hct 37.3 MCV 89.9 MCH 29.4 MCHC 32.7 RDW Std Deviation 43.9 RDW Coeff of Gracy 13.4 Plt Count 471 H MPV 8.9 Immature Gran % (Auto) 0.1 Neut % (Auto) 51.3 Lymph % (Auto) 34.1 [place] % (Auto) 9.2 Eos % (Auto) 4.9 Baso % (Auto) 0.4 Neut # (Auto) 4.05 Lymph # (Auto) 2.70 [place] # (Auto) 0.73 H Eos # (Auto) 0.39 Baso # (Auto) 0.03 Immature Gran # (Auto) 0.01 Sodium Potassium Chloride Carbon Dioxide Anion Gap BUN Creatinine Est Cr Clr Drug Dosing Est GFR ( Amer) Est GFR (Non-Af Amer) BUN/Creatinine Ratio Glucose Calcium Magnesium Total Bilirubin Direct Bilirubin AST ALT Alkaline Phosphatase Troponin I Total Protein Albumin Globulin Albumin/Globulin Ratio Lipase Specimen Hemolysis Urine Color Urine Appearance Urine pH Ur Specific [place] Urine Protein Urine Glucose (UA) Urine Ketones Urine Blood Urine Nitrite Urine Bilirubin Urine Urobilinogen Ur Leukocyte Esterase Urine WBC (Auto) Urine RBC (Auto) U Hyaline Cast (Auto) U Epithel Cells (Auto) Urine Bacteria (Auto) COVID-19 Eval [address] Cov[address] [facility] SARS-CoV-2 (PCR) NEGATIVE 05/13/21 06:14 WBC RBC Hgb Hct MCV MCH MCHC RDW Std Deviation RDW Coeff of Gracy Plt Count MPV Immature Gran % (Auto) Neut % (Auto) Lymph % (Auto) [place] % (Auto) Eos % (Auto) Baso % (Auto) Neut # (Auto) Lymph # (Auto) [place] # (Auto) Eos # (Auto) Baso # (Auto) Immature Gran # (Auto) Sodium 142 Potassium 4.0 Chloride 114 H Carbon Dioxide 24 Anion Gap 4.0 BUN 13 Creatinine 0.82 Est Cr Clr Drug Dosing 84.8 Est GFR ( Amer) 89.5 Est GFR (Non-Af Amer) 77.2 BUN/Creatinine Ratio 15.9 Glucose 93 Calcium 8.5 Magnesium 2.0 Total Bilirubin 0.4 Direct Bilirubin AST 16 ALT 20 Alkaline Phosphatase 67 Troponin I Total Protein 6.1 L Albumin 2.8 L Globulin 3.3 Albumin/Globulin Ratio 0.9 Lipase Specimen Hemolysis Urine Color Urine Appearance Urine pH Ur Specific [place] Urine Protein Urine Glucose (UA) Urine Ketones Urine Blood Urine Nitrite Urine Bilirubin Urine Urobilinogen Ur Leukocyte Esterase Urine WBC (Auto) Urine RBC (Auto) U Hyaline Cast (Auto) U Epithel Cells (Auto) Urine Bacteria (Auto) COVID-19 Eval Order SARS-CoV-2 (PCR) PG Care Time/CCT Total # of Minutes Spent Total Time Spent with Patient: Total time spent is greater than 50% in coordination of care (as documented) at patient's floor/unit and/or counseling patient: Coding Level of Care Code 58621 Subseq Hosp Care Lvl 2 Diagnoses Left ureteral stone N20.1 Hydronephrosis, left N13.30 Depression F32.9 Insomnia G47.00 Hypertension I10
--- NOTE | 2021-05-13 11:10 | XRay Report ---
KUB CLINICAL HISTORY: Left ureteral calculus. FINDINGS: 2 AP supine abdominal radiographs are correlated with abdominal CT dated 05/12/2021. There i s a nonobstructed abdominal bowel gas pattern. There is no radiographic evidence of nephrolithiasis. No calcifications are seen projecting over either kidney. Left ureteral calculi seen by CT are not ap parent on x-ray. The skeletal structures are osteopenic and appear intact. IMPRESSION: Left ureteral calculi seen on yesterday's CT scan are not apparent on x-ray. Electronically signed by: Jonathan Molina M.D. 05/13/2021 11:08 AM
--- NOTE | 2021-05-13 13:01 | Discharge Summary ---
Date of Service May 13, 2021 Admission HPI Per Admitting Provider The patient is a 60-year-old female with a past medical history including insomnia, depression, post Covid syndrome, thrombocytosis, fibromyalgia, chronic GERD, right carpal tunnel syndrome and postconcussive syndrome. She presents to the emergency department with 1 week of left flank pain, similar to her previous 2 episodes of kidney stones, does occasionally radiate toward her left groin, and is accompanied by intermittent nausea and vomiting when the pain is severe. Specialty Data Hospitalist Today's examsee progress note Discharge Data Consultations 05/12/21 19:05 ED Decision to Admit Stat 05/13/21 08:49 Consult Urology Routine Hospital Course (1) Left ureteral stone: Urology consulted; she decided with them outpatient follow-up; discharge on Toradolshe does not desire narcotics; in addition Flomax (2) Hydronephrosis, left: See above (3) Depression: Continue mirtazapine (4) Insomnia: See above (5) Hypertension: Can resume atenolol as long as home blood pressure more than 120 Discharge Instructions Drink plenty of fluids; try to strain urine and catch the stone, if found take to your physician for analysis; watch blood pressure, if upper number less than 120 can hold blood pressure medicine while going through this; do not take naproxen while taking Toradol Coding Level of Care Code D/C DAY MANAGEMENT >30 MINS Diagnoses Left ureteral stone N20.1 Hydronephrosis, left N13.30 Depression F32.9 Insomnia G47.00 Hypertension I10 Time Spent (min) 40
[2021-05-13] MEDS ORDERED: TAMSULOSIN HCL 0.4 MG CAP PO SCH (21:00)
--- NOTE | 2021-05-14 05:34 | Electrocardiogram Report ---
Test Reason : Blood Pressure : / mmHG Vent. Rate : 094 BPM Atrial Rate : 094 BPM P-R Int : 170 ms QRS Dur : 070 ms QT Int : 360 ms P-R-T Axes : 057 017 039 degrees QTc Int : 450 ms Poor data quality, interpretation may be adversely affected Normal sinus rhythm Normal ECG When compared with ECG of 29-DEC-2020 20:08, No significant change was found Confirmed by Iftikhar Jorge ([id number] on 05/14/2021 5:33:53 AM Referred By: REFERRED SELF Confirmed By:Iftikhar Jorge
== END 2021-05-13 15:20 | disposition home or self-care (01) | DRG 694 ==
LOC: ED 14:00 → SUATTDRO 20:52 → 3W 20:52